=== PATIENT | male | born 1945 | race Caucasian/White ===

== ENCOUNTER 2016-08-21 21:35 | Emergency (ER) | payer BC ==
[~2016-08-21 21:35] MED LIST: ACET500CAP PO; ACTOS30 PO; ASAB PO; FLONASE NAS; GLUCOPHAGE1000 MG PO; JANUMET XR 1001 EACH PO; LANTUSCART SC; LIPITOR40 PO; OCUVITE PO; PLAVIX PO; PRAVAC PO; PRIN5 PO; PROTONIX PO; ZANTAC300 MG PO; [UNRECOGNIZED DRUG - OTHER] PO
[2016-08-21 21:56] LABS: BASOPHILS 0 %; EOSINOPHILS ABSOLUTE 0.09 10/3/uL (0.0-0.53); ER CBC TAT 0 Hrs 05 Mins; HEMATOCRIT 43.1 % (40.0-51.0); HEMOGLOBIN 14.1 g/dL (13.6-17.8); IMMATURE GRANULOCYTES 0.2 %; IMMATURE GRANULOCYTES ABSOLUTE 0.02 10/3/uL (0.0-0.11); LYMPHOCYTES 27.4 %; MEAN CORPUS HGB CONC 32.7 g/dL (32.0-36.0); MEAN CORPUSCULAR HEMOGLOB 28.6 pg (26.0-34.0); MONOCYTES 12.3 %; MONOCYTES ABSOLUTE 1.12 10/3/uL (0.21-1.20); NEUTROPHILS 59.1 %; NEUTROPHILS ABSOLUTE 5.39 10/3/uL (2.02-8.40); PLATELET COUNT 197 10/3/uL (150-400); RBC DISTRIBUTION WIDTH 15.1 % (12.0-16.0); RED CELL COUNT 4.93 10/6/uL (4.7-6.1); WHITE BLOOD CELLS 9.1 10/3/uL (4.5-10.5)
[2016-08-21 21:58] LABS: MANUAL DIFF NO %; MEAN CORPUSCULAR VOLUME 87.4 fL (80-100)
[2016-08-21 22:05] LABS: INTERNATIONAL NORMAL RATI 1.2 UNITS (-); PROTIME (NOT ORD) 15.1 SEC (12.0-14.5)
[2016-08-21 22:06] LABS: PARTIAL THROMBO TIME 44.5 SEC (22.5-37.2)
[2016-08-21 22:12] LABS: ALBUMIN 3.2 G/DL (3.5-5.0); CALCIUM, SERUM 9.1 MG/DL (8.5-10.4); CHEST PAIN PROFILE TAT 0 Hrs 21 Mins; CHLORIDE, SERUM 107 MMOL/L (96-112); CO2 (CARBON DIOXIDE) 28 MMOL/L (24-34); CREATININE 1.15 MG/DL (0.70-1.30); DIRECT BILIRUBIN 0.3 MG/DL (0.0-0.4); GFR AFRICAN AMERICAN 73 ML/MIN (>=60); GFR NON AFRICAN AMERICAN 63 ML/MIN (>=60); GLUCOSE, SERUM 115 MG/DL (60-99); SGOT(AST) 17 U/L (5-40); SGPT(ALT) 17 U/L (5-65); SODIUM, SERUM 141 MMOL/L (135-148); TOTAL BILIRUBIN 1.3 MG/DL (0-1.2); TOTAL PROTEIN 7.6 G/DL (6.0-8.5); TROPONIN I <0.02 NG/ML (<0.05)
[2016-08-21 22:13] LABS: ALKALINE PHOSPHATASE 92 U/L (45-117); BUN (BLOOD UREA NITROGEN) 26 MG/DL (6-23)
[2016-08-21] MEDS ORDERED: ACTOS30 PO (23:03)
[2016-08-21] MEDS ORDERED: LIPITOR20 PO (23:04)
[2016-08-21] MEDS ORDERED: JANUMET XR 1001 EACH PO (23:04)
[2016-08-21] MEDS ORDERED: ZANTAC300 MG PO (23:05)
[2016-08-21] MEDS ORDERED: LANTUSCART SC (23:05)
[2016-08-21] MEDS ORDERED: PLAVIX PO (23:06)
[2016-08-21] MEDS ORDERED: PROTONIX PO (23:06)
[2016-08-21] MEDS ORDERED: ASAB PO (23:06)
[2016-08-21] MEDS ORDERED: 8 HOUR650 MG PO (23:07)
[2016-08-21] MEDS ORDERED: OCUVITE PO (23:08)
[2016-08-21] MEDS ORDERED: BIOFREEZE OINTMENT TOP (23:09)
== END 2016-08-22 02:20 | disposition home or self-care (01) ==
LOC: ER 21:35
PROVIDERS: Emergency Medicine
DX: R10.31 Right lower quadrant pain (principal); R10.30 Lower abdominal pain, unspecified; M62.838 Other muscle spasm; R10.813 Right lower quadrant abdominal tenderness; E78.5 Hyperlipidemia, unspecified; K21.9 Gastro-esophageal reflux disease without esophagitis; E11.9 Type 2 diabetes mellitus without complications; Z86.73 Personal history of transient ischemic attack (TIA), and cerebral infarction without residual deficits; F17.210 Nicotine dependence, cigarettes, uncomplicated; Z79.82 Long term (current) use of aspirin; Z79.4 Long term (current) use of insulin; Z79.899 Other long term (current) drug therapy
CPT/HCPCS: 74177; 80048; 80076; 81001; 83690; 83735; 84484; 85025; 85610; 85730; 93005; 96374; 99285; J1170; J2405; Q9967